=== PATIENT | female | born 1960 | race Two or more races ===

== ENCOUNTER → 2017-04-25 10:27 | Outpatient (CLI) | payer OTHER ==
[~2017-04-25 10:27] MED LIST: AMICAR500 MG; AMICAR500 MG PO; CLARITIN-D 12 HOUR TAB ER PO; Nasonex NS
== END | disposition home or self-care (01) ==
LOC: PPHC 10:27
DX: R05 Cough (principal); J06.9 Acute upper respiratory infection, unspecified

== ENCOUNTER 2018-04-25 07:47 | Outpatient (CLI) | payer OTHER ==
[~2018-04-25] VITALS: Ht 160 cm; Wt 68.0 kg
[2018-04-25] MEDS ORDERED: AYR SALINE NA14.1 GM NASAL (09:31)
[2018-04-25] MEDS ORDERED: ZANTAC300 MG PO (09:32)
== END 2018-04-25 08:05 | disposition home or self-care (01) ==
LOC: OFIC 805 07:47
DX: J37.0 Chronic laryngitis (principal); R04.0 Epistaxis; D64.89 Other specified anemias; I78.0 Hereditary hemorrhagic telangiectasia

== ENCOUNTER 2018-05-02 07:35 | Outpatient (CLI) | payer OTHER ==
[~2018-05-02] VITALS: Ht 152.4 cm; Wt 68.0 kg
[~2018-05-02 07:35] MED LIST changes: +AYR SALINE NA14.1 GM NASAL; +ZANTAC300 MG PO
== END 2018-05-02 08:50 | disposition home or self-care (01) ==
LOC: OFIC 805 07:35
DX: R04.0 Epistaxis (principal); I78.0 Hereditary hemorrhagic telangiectasia

== ENCOUNTER 2018-05-04 12:42 | Outpatient (CLI) | payer OTHER | END 2018-05-04 12:48 | disposition home or self-care (01) | LOC: RAD 12:42 | DX: I10 Essential (primary) hypertension (principal) ==

== ENCOUNTER 2018-12-21 11:38 | Outpatient (CLI) | payer OTHER | END 2018-12-21 11:40 | disposition home or self-care (01) | LOC: RAD 11:38 | DX: I10 Essential (primary) hypertension (principal) ==

== ENCOUNTER 2019-03-13 07:16 | Outpatient (CLI) | payer OTHER ==
[~2019-03-13] VITALS: Ht 152.4 cm; Wt 68.0 kg
== END 2019-03-13 09:40 | disposition home or self-care (01) ==
LOC: OFIC 805 07:16
DX: J34.2 Deviated nasal septum (principal); R04.0 Epistaxis; I78.0 Hereditary hemorrhagic telangiectasia

== ENCOUNTER 2020-11-27 08:37 | Outpatient (CLI) | payer OTHER | END 2020-11-27 08:42 | disposition home or self-care (01) | LOC: TOM 08:37 | DX: R07.89 Other chest pain (principal); Q25.72 Congenital pulmonary arteriovenous malformation | CPT/HCPCS: 71275 ==

== ENCOUNTER 2021-12-01 06:07 | Emergency (ER) | payer OTHER ==
[~2021-12-01] VITALS: Ht 157.5 cm; Wt 68.0 kg
[2021-12-01] MEDS ORDERED: LOSARTAN POTASS50 MG PO (06:23)
[2021-12-01] MEDS ORDERED: NORVASC2.5 MG PO (06:24)
== END 2021-12-01 09:49 | disposition home or self-care (01) ==
LOC: ER 06:07
DX: L20.89 Other atopic dermatitis (principal)

== ENCOUNTER 2022-02-25 07:48 | Outpatient (CLI) | payer OTHER ==
[~2022-02-25 07:48] MED LIST changes: +LOSARTAN POTASS50 MG PO; +NORVASC2.5 MG PO
== END 2022-02-25 07:56 | disposition home or self-care (01) ==
LOC: RAD 07:48
PROVIDERS: ATTEND Otolaryngology
DX: R07.9 Chest pain, unspecified (principal)